=== PATIENT | female | born 1985 | race African-American/Black ===

== ENCOUNTER → 2018-04-26 | Outpatient (CLI) | payer OTHER ==
--- NOTE | 2018-04-26 16:15 | RAD ---
Pelvic ultrasound History: Irregular periods since delivery November 2017. Comparison: None. Technique: Transabdominal ultrasound was performed to evaluate the uterine fundus. Endovaginal imaging was performed to evaluate optimally the endometrial canal and lower uterine segment. TRANSABDOMINAL IMAGING Findings: The uterus measures 8.2 cm in length and is unremarkable. The endometrium measures 11 mm. Right ovary measures 2.6 x 2.1 x 1.2 cm and is unremarkable. The left ovary measures 2.1 x 1.3 x 2.0 cm and is unremarkable. No adnexal masses are identified. No significant free fluid is identified within the pelvis. ENDOVAGINAL IMAGING Findings: The uterus measures 7.6 cm in length and is unremarkable. The endometrium measures 11 mm. Right ovary measures 2.4 x 3.3 x 3.2 cm and demonstrates several small follicles. The left ovary measures 2.8 x 1.4 x 3.4 cm and demonstrates several small follicles. No adnexal masses are identified. No significant free fluid is identified within the pelvis. Both ovaries demonstrate normal vascular flow upon Doppler interrogation and are without evidence of torsion. Impression: 1. Unremarkable pelvic ultrasound. Electronically signed by: Bobby Dickens MD (04/26/2018 4:12 PM) [id number]
== END | disposition home or self-care (01) ==
LOC: US 13:42
PROVIDERS: ATTEND Obstetrics & Gynecology
DX: N93.8 Other specified abnormal uterine and vaginal bleeding (principal)
CPT/HCPCS: 76830; 76856